=== PATIENT | female | born 1990 | race American Indian/Alaskan Native ===

== ENCOUNTER 2016-03-31 19:40 | Outpatient (CLI) | payer MEDICAID ==
[2016-03-31 20:01] VITALS: BP 120/64
[2016-03-31 20:37] LABS: Bacteria,Urine 1+ /HPF (Negative); Bilirubin,Urine NEG (Negative); Blood,Urine NEG (Negative); Ketones,Urine NEG (Negative); Leukocyte Esterase,Urine MOD (Negative); Mucus,Urine FEW /HPF; Nitrite,Urine NEG (Negative); Protein,Urine <15 mg/dL mg/dL (Negative)
[2016-03-31] MEDS ORDERED: LACTATED RINGERS 1,000 ML IV ONE (20:54)
[2016-03-31] MEDS ORDERED: TYLENOL PO ONE (21:00)
--- NOTE | 2016-04-01 11:28 | Ultrasound Report ---
Limited OB ultrasound: There is a miranda intrauterine with a heart rate of 153 beats per minute. The ANAMIKA is 9.2 cm. The estimated gestational age is 34 weeks 3 days. No other information. BIOPHYSICAL PROFILE: 2 - breathing movements 2 - movements 2 - posture and tone 2 - Qualitative amniotic fluid volume 8 - TOTAL SCORE OF POSSIBLE 8 Heart Rate (bpm) 153
== END 2016-03-31 23:00 | disposition home or self-care (01) ==
LOC: TRG 19:40
PROVIDERS: ATTEND Obstetrics & Gynecology
DX: Z34.93 Encounter for supervision of normal pregnancy, unspecified, third trimester (principal); Z3A.34 34 weeks gestation of pregnancy
CPT/HCPCS: 59025; 76815; 76819; 81001

== ENCOUNTER 2016-04-26 07:45 | Inpatient (IN) | payer MEDICAID ==
[2016-04-26] MEDS ORDERED: BRETHINE SUB-Q PRN (09:05)
[2016-04-26] MEDS ORDERED: SUBLIMAZE IV PRN (09:05)
[2016-04-26] MEDS ORDERED: STADOL IV PRN (09:05)
[2016-04-26] MEDS ORDERED: MINERAL OIL PO PRN (09:05)
[2016-04-26] MEDS ORDERED: ePHEDrine SULFATE IV PRN ×2 (09:05→11:39)
[2016-04-26] MEDS ORDERED: BRETHINE IVP PRN (09:05)
[2016-04-26] MEDS: LACTATED RINGERS 1,000 ML IV SCH ×2 (09:40→10:45)
[2016-04-26 09:57] LABS: Hematocrit 34.6 % (30.3-42.9); Hemoglobin 11.2 gm/dl (10.1-14.3); Mean Corpuscular HGB Conc 32 % (30-34); Mean Corpuscular Volume 78 fl (79-97); Platelet Count 236 K/mm3 (140-440); Red Blood Count 4.43 M/mm3 (3.65-5.03); Red Cell Distribution Width 14.8 % (13.2-15.2); White Blood Count 11.5 K/mm3 (4.5-11.0)
[2016-04-26 09:58] LABS: Mean Corpuscular Hemoglobin 25 pg (28-32)
[2016-04-26] MEDS ORDERED: PITOCin/NS 30 UNIT/500ML 500 ML IV SCH ×2 (10:00)
[2016-04-26] MEDS ORDERED: PITOCin/NS 20 UNIT/1000ML DRIP 1,000 ML IV SCH (10:00)
[2016-04-26] MEDS ORDERED: ePHEDrine SULFATE ONE (10:52)
[2016-04-26] MEDS ORDERED: NARCAN 2 MG/2 ML IV PRN (11:39)
--- NOTE | 2016-04-26 11:39 | Anesthesia Consultation ---
Anesthesia Consult and Med Hx Date of service: 04/26/16 - Airway Anesthetic Teeth Evaluation: Good ROM Head & Neck: Adequate Mental/Hyoid Distance: Adequate Mallampati Class: Class II Intubation Access Assessment: Probably Good - Pulmonary Exam CTA: Yes - Cardiac Exam Cardiac Exam: RRR - Pre-Operative Health Status ASA Pre-Surgery Classification: ASA2 Proposed Anesthetic Plan: Epidural, Spinal - Pre-Anesthesia Comment Pre-Anesthesia Comments: at 37 weeks GA IUP in labor. 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 Patient not on any medication. Last seizure episode one year ago. Patient reports neurologic studies had been negative. Etiology for seizures unknown except for head trauma. - Pulmonary Hx Smoking: No Hx Asthma: No COPD: No Hx Pneumonia: No - Cardiovascular System Hx Hypertension: No - Central Nervous System Hx Neuromuscular Disorder: No Hx Seizures: Yes (dx epilepsy, last seizure 08/2015) Hx Psychiatric Problems: No - Endocrine Hx Renal Disease: No Hx End Stage Renal Disease: No Hx Hypothyroidism: No Hx Hyperthyroidism: No - Hematic Hx Anemia: No Hx Sickle Cell Disease: No - Other Systems Hx Alcohol Use: No
[2016-04-26] MEDS ORDERED: fentaNYL-BUPIV 2 MCG/ML-0.125% 100 ML EPIDURAL SCH (12:00)
--- NOTE | 2016-04-26 12:14 | History and Physical Report ---
History of Present Illness Date of examination: 04/26/16 Date of admission: 04/26/16 07:56 Chief complaint: 26 yo at 38+ weeks came in c/o of leaking History of present illness: 26 yo at 38 weeks here for c/o leaking this am of clear fluid. She noted to be 3cm admitted for srom and term . No other complaints . Past History Past Medical History: no pertinent history Past Surgical History: no surgical history Family/Genetic History: diabetes, hypertension Social history: no significant social history, single. denies: smoking - Obstetrical History Expected Date of Delivery: 05/13/16 Actual Gestation: 37 Week(s) 4 Day(s) : 3 Para: 1 Hx # Term Pregnancies: 1 Number of Pregnancies: 0 Spontaneous Abortions: 0 Induced : 1 Number of Living Children: 1 Medications and Allergies Allergies Allergy/AdvReac Type Severity Reaction Status Date / Time No Known Allergies Allergy Verified 04/26/16 08:10 Home Medications Medication Instructions Recorded Confirmed Last Taken Type Ferrous Sulfate [Feosol 325 MG tab] 325 mg PO BID #60 tablet 03/23/13 04/26/16 04/25/16 09:00 Rx 1 Pnv with Ca,No.72/Iron,Carb/FA 1 tab PO DAILY #30 tablet 11/26/15 04/26/1604/25 15:00 Rx [ Plus Iron Tablet] 1 Active Meds: Active Medications Butorphanol Tartrate (Stadol) 2 mg IV Q2H PRN PRN Reason: Pain , Severe (7-10) Ephedrine Sulfate (Ephedrine Sulfate) 10 mg IV Q2M PRN PRN Reason: Hypotension Stop: 04/27/16 11:38 Fentanyl (Sublimaze) 100 mcg IV Q2H PRN PRN Reason: Labor Pain Lactated Ringer's (Lactated Ringers) 1,000 mls @ 125 mls/hr IV DIRECT EMANI Last Admin: 04/26/16 10:45 Dose: 125 mls/hr Oxytocin/Sodium Chloride (Pitocin/Ns 20 Unit/1000ml Drip) 1,000 mls @ 125 mls/ hr IV DIRECT EMANI Oxytocin/Sodium Chloride (Pitocin/Ns 30 Unit/500ml) 500 mls @ 4 mls/hr IV TITR EMANI PRN Reason: Protocol Last Titration: 04/26/16 11:35 Dose: 4 ml/hr Oxytocin/Sodium Chloride (Pitocin/Ns 30 Unit/500ml) 500 mls @ 1 mls/hr IV TITR EMANI; 1 MILLIUNITS/MIN PRN Reason: Protocol Fentanyl/Bupivacaine/Sodium Chlor (Fentanyl-Bupiv 2 Mcg/Ml-0.125%) 100 mls @ 12 mls/hr EPIDURAL TITR EMANI PRN Reason: Protocol Last Admin: 04/26/16 11:55 Dose: 12 mls/hr Mineral Oil (Mineral Oil) 30 ml PO QHS PRN PRN Reason: Constipation Review of Systems All systems: negative Eyes: deferred Ears, nose, mouth and throat: deferred Breasts: deferred Genitourinary: leakage of fluid Rectal Exam: deferred Integumentary: deferred - Vital Signs Vital signs: Vital Signs Temp Resp 98.0 F 16 04/26/16 08:23 04/26/16 08:23 Temp Pulse Resp BP Pulse Ox 98.0 F 84 18 134/78 100 04/26/16 08:23 04/26/16 12:05 04/26/16 11:55 04/26/16 11:55 04/26/16 12:05 - Physical Exam Breasts: Positive: deferred Cardiovascular: Regular rate, Normal S1, Normal S2 Lungs: Positive: Clear to auscultation, Normal air movement Abdomen: Positive: normal appearance, soft, normal bowel sounds. Negative: distention, tenderness, guarding Genitourinary (Female): Positive: normal external genitalia, normal perenium Vulva: both: normal Vagina: Positive: normal moisture Uterus: Positive: enlarged Adnexa: both: normal Extremities: Positive: normal Deep Tendon Reflex Grade: Normal +2 - Obstetrical FHR: auscultation normal, category 1 Cervical Dilatation: 4 Cervical Effacement Percentage: 90 station: -2 Uterine Contraction Pattern: Regular Uterine Tone Measurement Phase: Contraction Uterine Contraction Intensity: Moderate Results Result Diagrams: 04/26/16 08:45 Abnormal lab results 04/26/16 Range/Units 08:45 WBC 11.5 H (4.5-11.0) K/mm3 MCV 78 L (79-97) fl MCH 25 L (28-32) pg All other labs normal. Assessment and Plan A/P HD#1 SROM clear term start pitocin GBS neg no abx required O+, antib neg, H/H 12.3/38.9---- 10.2/31.5 hep neg HIV neg HSV2 neg Rubella IMM G/C neg pap neg PLT 320-266 glucose 107 Expect vaginal delivery s/p epidural and comfortable
--- NOTE | 2016-04-26 15:07 | Procedure Note ---
OB Delivery Note - Delivery Date of Delivery: 04/26/16 (6-8oz male @ 1445) Surgeon: PATRICK SIFUENTES Estimated blood loss: 100cc - Vaginal Delivery presentation: vertex Delivery position: OA Intrapartum events: none Delivery induction: oxytocin Delivery monitor: external FHT, external uterine Route of delivery: Delivery placenta: spontaneous Delivery cord: nuchal cord (loose x 1, reduced), 3 umbilical vessels Episiotomy: none Delivery laceration: 1st degree (vaginal, no bleeding, approximates well, not repaired) Anesthesia: epidural - A at 1 minute: 8 at 5 minutes: 9 Gender: Male ( viable male, spont. cry, bulb suctioned, dried and placed skin to skin. Cord blood collected. Spont. placenta. FF 2 below, U, ML. Bleeding scant. IV site painful and burning. Pitocin IM given.)
[2016-04-26] MEDS ORDERED: BENADRYL PO PRN (15:08)
[2016-04-26] MEDS ORDERED: MILK OF MAGNESIA PO PRN (15:08)
[2016-04-26] MEDS ORDERED: TYLENOL PO PRN (15:08)
[2016-04-26] MEDS ORDERED: PHENERGAN PO PRN (15:08)
[2016-04-26] MEDS ORDERED: ZOFRAN IV PRN (15:08)
[2016-04-26] MEDS ORDERED: DERMOPLAST TP PRN (15:08)
[2016-04-26] MEDS ORDERED: DULCOLAX PR PRN (15:08)
[2016-04-26] MEDS ORDERED: NORCO 5/325 PO PRN (15:08)
[2016-04-26] MEDS ORDERED: TUCKS PAD TP PRN (15:08)
[2016-04-26] MEDS ORDERED: LANSINOH TP PRN (15:08)
[2016-04-26] MEDS ORDERED: PHENERGAN PR PRN (15:08)
[2016-04-26] MEDS ORDERED: SODIUM CHLORIDE FLUSH SYRINGE 10 ML IV NR (16:00)
[2016-04-26] MEDS: MOTRIN PO SCH (17:05)
[2016-04-27] MEDS: MOTRIN PO SCH ×3 (00:07→13:02)
[2016-04-27 06:28] LABS: Hematocrit 29.5 % (30.3-42.9); Hemoglobin 9.7 gm/dl (10.1-14.3)
--- NOTE | 2016-04-27 08:46 | Progress Note ---
Assessment and Plan - Patient Problems (1) Spontaneous rupture of amniotic membranes Current Visit: Yes Status: Acute Plan to address problem: Patient doing well Discharge home Subjective - Subjective Date of service: 04/27/16 Interval history: Patient is currently without complaints. She is tolerating regular diet without complication. Her pain is well-controlled. Patient reports: appetite normal, voiding normally, pain well controlled : doing well Objective - Vital Signs Latest vital signs: Vital Signs Temp Pulse Pulse Resp BP BP Pulse Ox 04/27/16 00:07 18 04/26/16 23:55 98.1 F 86 18 115/57 04/26/16 20:25 97.9 F 86 18 115/65 04/26/16 16:30 98 F 90 20 132/77 04/26/16 15:58 98.3 F 87 16 127/79 04/26/16 15:47 88 04/26/16 15:45 93 H 99 04/26/16 15:40 97 H 92 04/26/16 15:38 92 H 100 04/26/16 15:36 97 H 138/81 04/26/16 15:31 90 99 04/26/16 15:25 85 93 04/26/16 15:21 96 H 134/70 04/26/16 15:10 98.0 F 16 04/26/16 15:06 94 H 127/55 04/26/16 14:42 16 04/26/16 14:37 100 H 158/106 04/26/16 14:25 86 100 04/26/16 14:24 132 H 71 L 04/26/16 14:22 98 H 135/78 04/26/16 14:06 88 126/96 04/26/16 14:05 16 04/26/16 13:59 84 100 04/26/16 13:54 80 91 04/26/16 13:52 94 H 118/62 04/26/16 13:51 70 L 04/26/16 13:49 78 L 04/26/16 13:46 79 0 L 04/26/16 13:42 78 100 04/26/16 13:37 87 100 04/26/16 13:36 90 126/86 04/26/16 13:31 85 100 04/26/16 13:21 87 99 04/26/16 13:20 90 117/76 84 04/26/16 13:16 93 H 100 04/26/16 13:11 85 100 04/26/16 13:07 80 113/74 04/26/16 13:06 89 100 04/26/16 13:01 88 97 04/26/16 12:56 85 100 04/26/16 12:51 85 131/72 100 04/26/16 12:46 85 86 04/26/16 12:41 64 75 L 04/26/16 12:40 82 60 L 04/26/16 12:36 78 98 04/26/16 12:33 78 0 L 04/26/16 12:31 83 0 L 04/26/16 12:26 83 100 04/26/16 12:21 89 132/78 100 04/26/16 12:17 86 68 L 04/26/16 12:15 85 100 04/26/16 12:10 87 100 04/26/16 12:07 85 133/58 04/26/16 12:05 84 100 04/26/16 12:00 81 100 04/26/16 11:57 86 88 04/26/16 11:55 77 18 134/78 99 04/26/16 11:50 84 134/78 99 04/26/16 11:48 84 134/79 04/26/16 11:45 88 131/56 100 04/26/16 11:42 88 138/63 04/26/16 11:40 93 H 138/62 98 04/26/16 11:38 84 120/63 04/26/16 11:36 89 133/69 04/26/16 11:35 100 H 99 04/26/16 11:34 90 111/59 04/26/16 11:32 100 H 116/61 04/26/16 11:30 96 H 109/56 98 04/26/16 11:28 88 113/56 04/26/16 11:27 82 L 04/26/16 11:25 99 H 125/57 97 04/26/16 11:24 94 H 123/59 04/26/16 11:22 98 H 139/73 04/26/16 11:20 107 H 138/60 96 04/26/16 11:18 108 H 156/73 04/26/16 11:16 112 H 94 04/26/16 11:15 124 H 98 04/26/16 11:14 112 H 146/91 04/26/16 11:12 112 H 136/87 04/26/16 11:10 100 H 126/76 99 04/26/16 11:08 104 H 129/80 04/26/16 11:05 100 H 100 04/26/16 11:04 88 125/65 04/26/16 11:02 99 H 128/84 91 04/26/16 10:59 109 H 100 04/26/16 10:55 90 73 L 04/26/16 10:53 104 H 98 04/26/16 10:48 93 H 100 04/26/16 10:43 90 100 04/26/16 10:39 98 H 87 04/26/16 10:38 104 H 97 04/26/16 09:47 98 H 100 04/26/16 09:42 95 H 98 04/26/16 09:37 89 99 04/26/16 09:34 93 H 88 04/26/16 09:32 96 H 100 04/26/16 09:27 98 H 97 04/26/16 09:22 103 H 98 04/26/16 09:17 92 H 99 04/26/16 09:12 107 H 100 04/26/16 09:07 105 H 100 04/26/16 09:02 101 H 95 04/26/16 08:59 89 85 04/26/16 08:57 103 H 100 04/26/16 08:52 88 100 04/26/16 08:47 98 H 100 Intake and Output 04/26/16 04/27/16 04/27/16 22:59 06:59 14:59 Intake Total 650 600 Output Total 600 850 Balance 50 -250 Intake: IV 50 PITOCin/NS 30 UNIT/500ML 50 500 ML @ 1 MILLIUNITS/MIN 1 mls/hr IV TITR EMANI Rx# :[id number] Oral 360 Intake, Free Water 240 600 Output: Urine 600 850 Void 600 850 Other: Total, Intake Amount 240 Total, Output Amount 300 250 # Voids Void 1 Estimated Blood Loss 100 - Exam Uterus: Present: normal, firm - Labs Labs: Abnormal lab results 04/26/16 04/27/16 Range/Units 08:45 05:25 WBC 11.5 H (4.5-11.0) K/mm3 Hgb 9.7 L (10.1-14.3) gm/dl Hct 29.5 L (30.3-42.9) % MCV 78 L (79-97) fl MCH 25 L (28-32) pg
--- NOTE | 2016-04-27 08:48 | Discharge Summary ---
Providers - Providers Date of Admission: 04/26/16 07:56 Date of discharge: 04/27/16 Attending physician: CHRISSY LUCAS MD Primary care physician: NASH CERVANTES Hospitalization Reason for admission: rupture of membranes Delivery: Other procedures: none Discharge diagnosis: IUP at term delivered [place] baby: male Hospital course: The patient was admitted with active leakage of fluid. The patient's labor was augmented and she had a successful vaginal delivery. course was uneventful. Condition at discharge: Good Disposition: DISCHARGED TO HOME OR SELFCARE - Discharge Diagnoses (1) Spontaneous rupture of amniotic membranes Status: Acute Plan - Discharge Medications Prescriptions: HYDROcodone/APAP 5-325 [[place] 5/325] 1 each PO Q6HR PRN #30 tablet PRN Reason: Pain Ibuprofen [Motrin] 800 mg PO Q8HR PRN #60 tablet PRN Reason: Pain - Provider Discharge Summary Activity: no sex for 6 weeks, no heavy lifting 4 weeks, no strenuous exercise Diet: routine Instructions: routine Additional instructions: [] Smoking cessation referral if applicable(refer to patient education folder for contact #) [] Refer to [facility] Booklet Call your doctor immediately for: * Fever > 100.5 * Heavy vaginal bleeding ( >1 pad per hour) * Severe persistent headache * Shortness of breath * Reddened, hot, painful area to leg or breast * Drainage or odor from incision. * Keep incision clean and dry at all times and follow doctor's instructions regarding bathing/showering Follow-up 4 weeks
[2016-04-27] MEDS ORDERED: PRENATAL VITAMIN PO SCH (10:00)
--- NOTE | 2016-04-27 10:28 | Progress Note ---
Subjective Date of service: 04/27/16 Interval history: 1st day after normal vaginal delivery Patient is in the bed, comfortable. Pain is well controlled with pain meds. Ambulated well. No residual neurological deficit. No anesthesia complications Objective - Constitutional Vitals: Vital Signs - 12hr 04/26/16 04/27/16 04/27/16 23:55 00:07 08:12 Temperature 98.1 F 97.9 F Pulse Rate [ 86 76 Left] Respiratory 18 18 22 Rate Blood Pressure 115/57 114/74 [Left Arm] - Labs CBC & Chem 7: 04/27/16 05:25 Labs: Abnormal lab results 04/27/16 Range/Units 05:25 Hgb 9.7 L (10.1-14.3) gm/dl Hct 29.5 L (30.3-42.9) %
[2016-04-27] MEDS ORDERED: M-M-R II VACCINE SUB-Q ONE (15:08)
[2016-04-27 16:36] VITALS: BP 110/74
== END 2016-04-27 17:10 | disposition home or self-care (01) | DRG 775 ==
LOC: TRG 07:45 → LD 07:56 → OB 16:39
PROVIDERS: ADMIT Obstetrics & Gynecology; ATTEND Obstetrics & Gynecology
PROC: 10E0XZZ Delivery of Products of Conception, External Approach (ICD-10-PCS; principal; 2016-04-26)
PROC: 3E033VJ Introduction of Other Hormone into Peripheral Vein, Percutaneous Approach (ICD-10-PCS; 2016-04-26)
PROC: 00HU33Z Insertion of Infusion Device into Spinal Canal, Percutaneous Approach (ICD-10-PCS; 2016-04-26)
PROC: 3E0R3BZ Introduction of Anesthetic Agent into Spinal Canal, Percutaneous Approach (ICD-10-PCS; 2016-04-26)
DX: O42.92 Full-term premature rupture of membranes, unspecified as to length of time between rupture and onset of labor (principal); O69.81X0 Labor and delivery complicated by cord around neck, without compression, not applicable or unspecified; O70.0 First degree perineal laceration during delivery; Z37.0 Single live birth; Z3A.38 38 weeks gestation of pregnancy; Z83.3 Family history of diabetes mellitus; Z82.49 Family history of ischemic heart disease and other diseases of the circulatory system
CPT/HCPCS: 36415; 85014; 85018; 85027; 86850; 86900; 86901; 99211; G0463; J2590; J7120

== ENCOUNTER 2019-11-21 14:05 | Outpatient (CLI) | payer MEDICAID ==
[2019-11-21 14:39] VITALS: BP 120/60
[2019-11-21] MEDS ORDERED: ACETAMINOPHEN 500 MG TAB PO ONE (16:45)
== END 2019-11-21 16:15 | disposition home or self-care (01) ==
LOC: TRG 14:05 → APU 14:07 → TRG 16:15
PROVIDERS: ATTEND Obstetrics & Gynecology
DX: O26.893 Other specified pregnancy related conditions, third trimester (principal); M54.5 Low back pain; R10.2 Pelvic and perineal pain; Z3A.37 37 weeks gestation of pregnancy
CPT/HCPCS: 59025

== ENCOUNTER 2019-11-26 00:18 | Outpatient (CLI) | payer MEDICAID ==
[2019-11-26 01:08] VITALS: BP 126/80
[2019-11-26] MEDS ORDERED: ONDANSETRON 4 MG ODT TAB PO PRN (01:48)
[2019-11-26] MEDS ORDERED: ACETAMINOPHEN 500 MG TAB PO ONE (01:49)
== END 2019-11-26 02:47 | disposition home or self-care (01) ==
LOC: TRG 00:18 → APU 00:19 → TRG 02:47
PROVIDERS: ATTEND Obstetrics & Gynecology
DX: O26.892 Other specified pregnancy related conditions, second trimester (principal); R10.2 Pelvic and perineal pain; M54.5 Low back pain; Z3A.27 27 weeks gestation of pregnancy
CPT/HCPCS: 59025; Q0162

== ENCOUNTER 2019-11-30 18:45 | Outpatient (CLI) | payer MEDICAID ==
[2019-11-30 19:53] VITALS: BP 139/89
--- NOTE | 2019-11-30 22:02 | Ultrasound Report ---
ULTRASOUND OBSTETRIC LIMITED ULTRASOUND BIOPHYSICAL PROFILE INDICATION / CLINICAL INFORMATION: WELLBEING. Clinical Gestational Age (GA): 38.2 weeks.days COMPARISON: None available. FINDINGS: BREATHING MOVEMENT = 2 GROSS BODY MOVEMENT = 2 TONE = 2 QUALITATIVE AMNIOTIC FLUID VOLUME = 2 TOTAL BIOPHYSICAL SCORE = 8/8 HEART RATE (beats per minute): 152 AMNIOTIC FLUID INDEX (cm) = 7.3 (normal = 7-24 cm) PRESENTATION: Cephalic. PLACENTA: Fundal location. ADDITIONAL FINDINGS: None. IMPRESSION: 1. Biophysical Score = 8/8 Signer Name: Benito Barry MD Signed: 11/30/2019 9:57 PM Workstation Name: [id number]
--- NOTE | 2019-11-30 22:03 | Ultrasound Report ---
ULTRASOUND OBSTETRIC LIMITED ULTRASOUND BIOPHYSICAL PROFILE INDICATION / CLINICAL INFORMATION: ANAMIKA. Clinical Gestational Age (GA): 38.2 weeks.days COMPARISON: None available. FINDINGS: AMNIOTIC FLUID INDEX (cm) = 7.3 (normal = 7-24 cm) Right upper quadrant: 0.5 cm Right lower quadrant: 2.6 cm Left upper quadrant: 3.0 cm Left lower quadrant: 1.1 cm ADDITIONAL FINDINGS: None. IMPRESSION: 1. Normal amniotic fluid index of 7.3 cm. Signer Name: Benito Barry MD Signed: 11/30/2019 9:59 PM Workstation Name: [id number]
== END 2019-11-30 21:10 | disposition home or self-care (01) ==
LOC: TRG 18:45 → APU 18:47 → TRG 21:10
PROVIDERS: ATTEND Obstetrics & Gynecology
DX: O47.1 False labor at or after 37 completed weeks of gestation (principal); Z3A.40 40 weeks gestation of pregnancy
CPT/HCPCS: 59025; 76815; 76819